=== PATIENT | female | born 1950 | race Caucasian/White ===

== ENCOUNTER 2018-01-13 22:00 | Emergency (ER) | payer MEDICARE, MEDICAID ==
[~2018-01-13] VITALS: Ht 157.5 cm; Wt 54.0 kg
[~2018-01-13 22:00] MED LIST: ACET-2178; ASPI-785; DOCU-266; HYDR-519; INSLAN; LISI-651; PROT40; SULF-165 PO; TRAM50TA PO
[2018-01-13] MEDS ORDERED: SODIUM CHLORIDE 0.9% 1,000 ML IV ONE (22:56)
[2018-01-13 23:44] LABS: EOSINOPHILS % 3.6 % (0.0-5.0); HEMATOCRIT. 35.5 % (36.0-48.0); HEMOGLOBIN. 11.7 g/dL (12.0-16.0); LYMPHOCYTES % 26.6 % (20.0-50.0); MEAN CORPUSCULAR HEMOGLOBIN 28.7 pg (28.0-32.0); MEAN CORPUSCULAR VOLUME 87.1 fL (81.0-99.0); MEAN PLATELET VOLUME 7.2 fl (7.4-10.4); MONOCYTES % 5.1 % (2.0-8.0); NEUTROPHILS % 63.7 % (40.0-76.0); PLATELET 201 x1000/uL (130-400); RED BLOOD CELL COUNT 4.07 mill/uL (4.2-5.4); RED CELL DISTRIBUTION WIDTH 13.3 % (11.6-14.6)
[2018-01-13 23:51] LABS: CHLORIDE 108 mEq/L (98-107)
[2018-01-13 23:53] LABS: PROTHROMBIN TIME 10.2 sec (9.4-11.6)
[2018-01-13 23:57] LABS: AMMONIA 16 uMol/L (<32)
[2018-01-14 02:32] VITALS: BP 120/70
== END 2018-01-14 02:33 | disposition home or self-care (01) ==
LOC: ER 22:00
DX: R40.4 Transient alteration of awareness (principal); E11.9 Type 2 diabetes mellitus without complications; Z86.73 Personal history of transient ischemic attack (TIA), and cerebral infarction without residual deficits; Z79.4 Long term (current) use of insulin; Z79.82 Long term (current) use of aspirin
CPT/HCPCS: 36415; 70450; 71045; 80053; 82140; 82962; 83605; 84484; 85025; 85610; 93005; 96360; 96361; 99285; J7030

== ENCOUNTER 2018-06-08 07:00 | Emergency (ER) | payer MEDICARE, MEDICAID ==
[~2018-06-08] VITALS: Ht 157.5 cm; Wt 74.0 kg
[2018-06-08] MEDS ORDERED: DEXTROSE 50% WATER 50ML SYRINGE IV ONE ×3 (07:38→08:51)
[2018-06-08 08:21] LABS: HEMATOCRIT. 32.4 % (36.0-48.0); HEMOGLOBIN. 10.8 g/dL (12.0-16.0); MEAN CORPUSCULAR HEMOGLOBIN 30.4 pg (28.0-32.0); MEAN CORPUSCULAR VOLUME 91.2 fL (81.0-99.0); MEAN PLATELET VOLUME 7.1 fl (7.4-10.4); PLATELET 278 x1000/uL (130-400); RED BLOOD CELL COUNT 3.55 mill/uL (4.2-5.4); RED CELL DISTRIBUTION WIDTH 16.1 % (11.6-14.6)
[2018-06-08 08:29] LABS: CHLORIDE 108 mEq/L (98-107)
[2018-06-08 08:38] LABS: INR 0.9; PROTHROMBIN TIME 9.4 sec (9.1-11.1)
[2018-06-08 08:53] LABS: PLATELET ESTIMATE NORMAL
[2018-06-08] MEDS ORDERED: IPRATROPIUM BROMIDE (0.02%) 0.5MG/2.5ML NEB HHN STA (09:19)
[2018-06-08] MEDS ORDERED: ALBUTEROL (0.083%) 2.5MG/3ML NEB HHN STA (09:19)
[2018-06-08] MEDS ORDERED: METHYLPREDNISOLONE SOD SUCC 125 MG/2 ML VIAL IV STA (09:19)
[2018-06-08] MEDS ORDERED: DEXT 5%/0.9% NACL 1,000 ML IV ONE (09:30)
[2018-06-08 09:52] LABS: CLARITY URINE CLOUDY (CLEAR); COLOR URINE YELLOW (YELLOW); KETONES URINE NEGATIVE (NEGATIVE); LEUKOCYTE ESTERASE URINE NEGATIVE (NEGATIVE); NITRITE URINE NEGATIVE (NEGATIVE); OCCULT BLOOD URINE 1+ (NEGATIVE); PROTEIN URINE 3+ (NEGATIVE); SPECIFIC GRAVITY URINE 1.013 (1.005-1.030); UROBILINOGEN URINE 0.2 E.U./dL (0.2-1.0)
[2018-06-08] MEDS ORDERED: CEFTRIAXONE 1 G PREMIX 50 ML IV STA (14:53)
[2018-06-08 20:33] VITALS: BP 174/78
== END 2018-06-08 21:31 ==
LOC: ER 07:41 → EDBEDREQ 09:27 → CANRESERV 19:32 → ENRESERV 19:32 → CANBEDREQ 19:41 → ER 21:31
DX: E11.649 Type 2 diabetes mellitus with hypoglycemia without coma (principal); E11.43 Type 2 diabetes mellitus with diabetic autonomic (poly)neuropathy; I10 Essential (primary) hypertension; F03.90 Unspecified dementia, unspecified severity, without behavioral disturbance, psychotic disturbance, mood disturbance, and anxiety; I69.351 Hemiplegia and hemiparesis following cerebral infarction affecting right dominant side; Z79.4 Long term (current) use of insulin
CPT/HCPCS: 36415; 51702; 71045; 80053; 81003; 82962; 85025; 85610; 93005; 94640; 96361; 96365; 96366; 96375; 99291; J0696; J2930; J7042; J7611; A4315